=== PATIENT | male | born 1960 | race Caucasian/White ===

== ENCOUNTER 2019-04-11 19:37 | Emergency (ER) | payer MEDICARE ==
[~2019-04-11] VITALS: Ht 165.1 cm; Wt 77.0 kg
[2019-04-11] MEDS ORDERED: ipratropium/albuterol 3ml nebule NEB ONE (19:50)
[2019-04-11] MEDS ORDERED: methylPREDNISolone sod succ 125mg/2ml vial IV ONE (20:15)
[2019-04-11] MEDS ORDERED: albuterol 2.5 MG/3 ML nebule CONTNEB ONE (20:15)
[2019-04-11] MEDS ORDERED: normal saline 1000ml 1,000 ML IV ONE (20:20)
[2019-04-11] MEDS ORDERED: magnesium 2GM in 50ml NS 50 ML IV ONE (20:20)
--- NOTE | 2019-04-11 22:03 | NUR ---
Checked in on pt. Pt breathing is greatly improved-no further wheezing.
[2019-04-11] MEDS ORDERED: FLUT1BLS3 IH (22:10)
[2019-04-11] MEDS ORDERED: ALBU8.5H8 INH (22:10)
[2019-04-11] MEDS ORDERED: PRED10TA PO (22:10)
[2019-04-11 22:17] VITALS: BP 110/62
== END 2019-04-11 22:25 | disposition home or self-care (01) ==
LOC: ER 19:38
DX: J45.901 Unspecified asthma with (acute) exacerbation (principal); Z79.899 Other long term (current) drug therapy
CPT/HCPCS: 36415; 71046; 83880; 94640; 94644; 94760; 96365; 96375; 99285; J2930; J3475; J7030

== ENCOUNTER 2019-05-20 08:51 | Emergency (ER) | payer MEDICARE ==
[~2019-05-20] VITALS: Ht 165.1 cm; Wt 75.0 kg
[~2019-05-20 08:51] MED LIST: ALBU8.5H8 INH; FLUT1BLS3 IH; PRED10TA PO
[2019-05-20] MEDS ORDERED: TETanus/Pertussis (Acell)/Diphther VAC/PF (Tdap-Adult) 0.5ml syringe IM ONE (09:40)
[2019-05-20] MEDS ORDERED: LIDOcaine 1% w/epiNEPHrine 1:200,000 30ml vial IM ONE (09:40)
[2019-05-20] MEDS ORDERED: CEPH500C5 PO (11:04)
[2019-05-20] MEDS ORDERED: HYDR-4383 PO (11:05)
[2019-05-20 11:30] VITALS: BP 119/79
== END 2019-05-20 11:41 | disposition home or self-care (01) ==
LOC: ER 08:52
DX: S62.522B Displaced fracture of distal phalanx of left thumb, initial encounter for open fracture (principal); J45.909 Unspecified asthma, uncomplicated; Z79.2 Long term (current) use of antibiotics; Z79.899 Other long term (current) drug therapy; W26.8XXA Contact with other sharp object(s), not elsewhere classified, initial encounter; Y93.89 Activity, other specified; Y92.69 Other specified industrial and construction area as the place of occurrence of the external cause; Y99.8 Other external cause status
CPT/HCPCS: 12002; 29125; 73130; 90471; 99283

== ENCOUNTER 2019-06-03 06:29 | Emergency (ER) | payer MEDICARE ==
[~2019-06-03] VITALS: Ht 165.1 cm; Wt 75.0 kg
[~2019-06-03 06:29] MED LIST changes: +HYDR-4383 PO
[2019-06-03 06:33] VITALS: BP 115/62
== END 2019-06-03 07:00 | disposition home or self-care (01) ==
LOC: ER 06:30
DX: S61.012D Laceration without foreign body of left thumb without damage to nail, subsequent encounter (principal); J45.909 Unspecified asthma, uncomplicated; Z79.2 Long term (current) use of antibiotics; Z79.899 Other long term (current) drug therapy; X58.XXXD Exposure to other specified factors, subsequent encounter
CPT/HCPCS: 99281

== ENCOUNTER 2019-11-15 17:14 | Emergency (ER) | payer MEDICARE ==
[~2019-11-15] VITALS: Ht 165.1 cm; Wt 72.0 kg
[2019-11-15 18:05] LABS: BASOPHILS # (AUTO) 0.1 X10'3 (0-0.2); BASOPHILS % (AUTO) 0.9 % (0-1); EOSINOPHILS # (AUTO) 0.1 X10'3 (0-0.9); EOSINOPHILS % (AUTO) 1.1 % (0-6); HEMATOCRIT 46.8 % (42.0-52.0); HEMOGLOBIN 15.9 g/dl (14.0-17.9); LYMPHOCYTES # (AUTO) 1.6 X10'3 (1.1-4.8); LYMPHOCYTES % (AUTO) 28.2 % (21-51); MEAN CORPUSCULAR HEMOGLOBIN 31.7 PG (27.0-31.0); MEAN CORPUSCULAR HGB CONC 33.9 g/dL (33.0-36.5); MEAN CORPUSCULAR VOLUME 93.6 FL (78-98); MEAN PLATELET VOLUME 7.4 FL (7.4-10.4); MONOCYTES # (AUTO) 0.6 X10'3 (0-0.9); NEUTROPHILS # (AUTO) 3.4 X10'3 (1.8-7.7); NEUTROPHILS % (AUTO) 58.8 % (42-75); PLATELET COUNT 176 X10'3 (140-440); RED BLOOD COUNT 5.01 X10'6 (4.70-6.10); RED CELL DISTRIBUTION WIDTH 15.5 % (11.5-14.5); WHITE BLOOD COUNT 5.8 X10'3 (4.5-11.0)
[2019-11-15 18:29] LABS: ALANINE AMINOTRANSFERASE 31 U/L (12-78); ALBUMIN 3.6 G/DL (3.4-5.0); ALBUMIN/GLOBULIN RATIO 1.1 (1.1-1.5); ALKALINE PHOSPHATASE 63 IU/L (46-116); ANION GAP 6 (8-16); ASPARTATE AMINO TRANSFERASE 18 U/L (10-37); BILIRUBIN,TOTAL 0.4 MG/DL (0.1-1.0); BLOOD UREA NITROGEN 21 MG/DL (7-18); BUN/CREATININE RATIO 20.4 (5.4-32.0); CALCIUM 8.7 MG/DL (8.5-10.1); CHLORIDE 106 MMOL/L (99-107); CREATININE 1.03 MG/DL (0.60-1.10); GLUCOSE 119 MG/DL (70-104); POTASSIUM 4.4 MMOL/L (3.5-5.1); SODIUM 141 MMOL/L (135-145); TOTAL CARBON DIOXIDE 28.8 MMOL/L (24-32); TOTAL PROTEIN 6.9 G/DL (6.4-8.2); eGFR 74 ML/MIN
[2019-11-15] MEDS ORDERED: ipratropium/albuterol 3ml nebule NEB ONE (19:40)
[2019-11-15] MEDS ORDERED: methylPREDNISolone sod succ 125mg/2ml vial IV ONE (21:30)
[2019-11-15] MEDS: albuterol 2.5 MG/3 ML nebule CONTNEB PRN (21:51)
[2019-11-15] MEDS ORDERED: ALBU8.5H8 IH (22:04)
[2019-11-15] MEDS ORDERED: PRED5TAB PO (22:04)
[2019-11-15] MEDS ORDERED: FLUT1DIS4 INH (22:04)
[2019-11-15] MEDS ORDERED: normal saline 1000ml 1,000 ML IV ONE (22:40)
[2019-11-15] MEDS ORDERED: levoFLOXACIN-Levaquin 750MG/D5 150 ML IV ONE (22:40)
[2019-11-16] MEDS ORDERED: albuterol 2.5 MG/3 ML nebule CONTNEB PRN
[2019-11-16] MEDS: albuterol 2.5 MG/3 ML nebule CONTNEB PRN (00:07)
--- NOTE | 2019-11-16 00:07 | NUR ---
Respiratory therapy is in the room to start another continuous neb treatment.
[2019-11-16] MEDS ORDERED: dexamethasone 4mg tablet PO ONE (00:50)
[2019-11-16] MEDS ORDERED: albuterol 2.5 MG/3 ML nebule NEB ONE (00:50)
[2019-11-16] MEDS ORDERED: ALBU6.7H9 INH (00:51)
[2019-11-16] MEDS ORDERED: PRED20TA PO (00:51)
[2019-11-16 01:40] VITALS: BP 112/70
[2019-11-21] MEDS ORDERED: AZI25OT PO (11:20)
[2019-11-21] MEDS ORDERED: PRED10TA23 PO (11:20)
== END 2019-11-16 01:41 | disposition home or self-care (01) ==
LOC: ER 17:15
DX: J44.1 Chronic obstructive pulmonary disease with (acute) exacerbation (principal); F17.210 Nicotine dependence, cigarettes, uncomplicated; Z79.899 Other long term (current) drug therapy; Z79.52 Long term (current) use of systemic steroids
CPT/HCPCS: 36415; 71045; 80053; 83605; 84145; 84484; 85025; 87040; 87502; 87503; 93005; 94640; 94644; 94645; 96365; 96375; 99285; J1956; J2930; J7030; 94760

== ENCOUNTER 2019-11-18 17:10 | Emergency (ER) | payer MEDICARE ==
[~2019-11-18] VITALS: Ht 165.1 cm; Wt 78.8 kg
[~2019-11-18 17:10] MED LIST changes: +ALBU6.7H9 INH; +ALBU8.5H8 IH; -ALBU8.5H8 INH; -FLUT1BLS3 IH; +FLUT1DIS4 INH; -HYDR-4383 PO; -PRED10TA PO; +PRED20TA PO; +PRED5TAB PO
[2019-11-18 19:18] LABS: HEMATOCRIT 43.9 % (42.0-52.0); HEMOGLOBIN 15.1 g/dl (14.0-17.9); MEAN CORPUSCULAR HGB CONC 34.4 g/dL (33.0-36.5); MEAN PLATELET VOLUME 8.1 FL (7.4-10.4)
[2019-11-18 19:19] LABS: BASOPHILS % (AUTO) 0.3 % (0-1); EOSINOPHILS % (AUTO) 0.4 % (0-6); LYMPHOCYTES # (AUTO) 0.9 X10'3 (1.1-4.8); LYMPHOCYTES % (AUTO) 9.9 % (21-51); MEAN CORPUSCULAR VOLUME 93.2 FL (78-98); MONOCYTES # (AUTO) 0.6 X10'3 (0-0.9); MONOCYTES % (AUTO) 5.9 % (2-12); NEUTROPHILS # (AUTO) 7.8 X10'3 (1.8-7.7); NEUTROPHILS % (AUTO) 83.5 % (42-75); PLATELET COUNT 174 X10'3 (140-440); RED BLOOD COUNT 4.71 X10'6 (4.70-6.10); RED CELL DISTRIBUTION WIDTH 14.8 % (11.5-14.5); WHITE BLOOD COUNT 9.4 X10'3 (4.5-11.0)
[2019-11-18] MEDS ORDERED: methylPREDNISolone sod succ 125mg/2ml vial IV ONE (19:20)
[2019-11-18] MEDS ORDERED: ipratropium/albuterol 3ml nebule NEB ONE (19:20)
[2019-11-18 19:26] LABS: ALANINE AMINOTRANSFERASE 45 U/L (12-78); ALBUMIN 3.5 G/DL (3.4-5.0); ALBUMIN/GLOBULIN RATIO 1.1 (1.1-1.5); ALKALINE PHOSPHATASE 55 IU/L (46-116); ANION GAP 8 (8-16); ASPARTATE AMINO TRANSFERASE 20 U/L (10-37); BILIRUBIN,TOTAL 0.4 MG/DL (0.1-1.0); BLOOD UREA NITROGEN 27 MG/DL (7-18); BUN/CREATININE RATIO 28.4 (5.4-32.0); CALCIUM 8.9 MG/DL (8.5-10.1); CHLORIDE 107 MMOL/L (99-107); CREATININE 0.95 MG/DL (0.60-1.10); GLUCOSE 99 MG/DL (70-104); POTASSIUM 4.3 MMOL/L (3.5-5.1); SODIUM 142 MMOL/L (135-145); TOTAL CARBON DIOXIDE 27.3 MMOL/L (24-32); TOTAL PROTEIN 6.8 G/DL (6.4-8.2); eGFR 81 ML/MIN
[2019-11-18] MEDS ORDERED: PRED20TA PO (20:01)
[2019-11-18 20:40] VITALS: BP 114/62
[2019-11-21] MEDS ORDERED: AZI25OT PO (11:20)
[2019-11-21] MEDS ORDERED: PRED10TA23 PO (11:20)
== END 2019-11-18 20:42 | disposition home or self-care (01) ==
LOC: ER 17:11
DX: J45.909 Unspecified asthma, uncomplicated (principal); Z87.09 Personal history of other diseases of the respiratory system; Z79.899 Other long term (current) drug therapy
CPT/HCPCS: 36415; 71045; 80053; 83880; 84484; 85025; 93005; 94640; 96374; 99284; J2930; 94760

== ENCOUNTER 2020-02-11 10:31 | Emergency (ER) | payer MEDICARE ==
[~2020-02-11] VITALS: Ht 165.1 cm; Wt 76.8 kg
[~2020-02-11 10:31] MED LIST changes: -ALBU6.7H9 INH; +AZI25OT PO; -PRED20TA PO; -PRED5TAB PO
[2020-02-11 10:37] VITALS: BP 114/79
--- NOTE | 2020-02-11 11:03 | NUR ---
Breaking primary RN, pt just got his X ray, awaiting results
[2020-02-11] MEDS ORDERED: acetaminophen 325mg tablet PO ONE (11:10)
[2020-02-11] MEDS ORDERED: ketorolac trometh inj. 60 MG/2 ML VIAL IM ONE (11:10)
== END 2020-02-11 13:17 | disposition home or self-care (01) ==
LOC: ER 10:32
DX: S92.002A Unspecified fracture of left calcaneus, initial encounter for closed fracture (principal); J44.9 Chronic obstructive pulmonary disease, unspecified; Z60.2 Problems related to living alone; Z79.2 Long term (current) use of antibiotics; Z79.899 Other long term (current) drug therapy; W11.XXXA Fall on and from ladder, initial encounter; Y93.89 Activity, other specified; Y92.89 Other specified places as the place of occurrence of the external cause; Y99.8 Other external cause status
CPT/HCPCS: 29515; 73630; 73700; 96372; 99284; J1885

== ENCOUNTER 2022-10-05 14:17 | Inpatient (IN) | payer MEDICARE ==
[~2022-10-05] VITALS: Ht 165.1 cm; Wt 81.8 kg
[~2022-10-05 14:17] MED LIST changes: +ALBU8.5H17 IH; -ALBU8.5H8 IH
[2022-10-05] MEDS ORDERED: magnesium 2GM in 50ml NS 50 ML IV ONE (14:25)
[2022-10-05] MEDS ORDERED: ipratropium 0.5 MG/2.5ML nebule IH ONE (14:25)
[2022-10-05] MEDS ORDERED: albuterol 2.5 MG/3 ML nebule CONTNEB PRN (14:25)
[2022-10-05 14:39] LABS: BASOPHILS % (AUTO) 0.4 % (0-1); EOSINOPHILS % (AUTO) 0 % (0-6); HEMOGLOBIN 14.8 g/dl (14.0-17.9); LYMPHOCYTES # (AUTO) 0.4 X10'3 (1.1-4.8); LYMPHOCYTES % (AUTO) 4.6 % (21-51); MEAN CORPUSCULAR HEMOGLOBIN 31.2 PG (27.0-31.0); MEAN CORPUSCULAR HGB CONC 33.6 g/dL (33.0-36.5); MEAN CORPUSCULAR VOLUME 92.7 FL (78-98); MEAN PLATELET VOLUME 7.3 FL (7.4-10.4); MONOCYTES # (AUTO) 0.7 X10'3 (0-0.9); MONOCYTES % (AUTO) 8.1 % (2-12); NEUTROPHILS # (AUTO) 7.8 X10'3 (1.8-7.7); NEUTROPHILS % (AUTO) 86.9 % (42-75); PLATELET COUNT 188 X10'3 (140-440); RED BLOOD COUNT 4.75 X10'6 (4.70-6.10); RED CELL DISTRIBUTION WIDTH 14.7 % (11.5-14.5)
[2022-10-05 14:59] LABS: ALANINE AMINOTRANSFERASE 27 U/L (12-78); ALBUMIN 3.8 G/DL (3.4-5.0); ALBUMIN/GLOBULIN RATIO 1.1 (1.1-1.5); ALKALINE PHOSPHATASE 86 IU/L (46-116); ANION GAP 7 (8-16); ASPARTATE AMINO TRANSFERASE 21 U/L (10-37); BILIRUBIN,TOTAL 0.6 MG/DL (0.1-1.0); BLOOD UREA NITROGEN 16 MG/DL (7-18); BUN/CREATININE RATIO 14.7 (5.4-32.0); CALCIUM 9.7 MG/DL (8.5-10.1); CHLORIDE 103 MMOL/L (99-107); CREATININE 1.09 MG/DL (0.60-1.10); GLUCOSE 105 MG/DL (70-104); POTASSIUM 4.3 MMOL/L (3.5-5.1); SODIUM 137 MMOL/L (135-145); TOTAL CARBON DIOXIDE 26.9 MMOL/L (24-32); TOTAL PROTEIN 7.4 G/DL (6.4-8.2); eGFR 68 ML/MIN
[2022-10-05] MEDS ORDERED: methylPREDNISolone sod succ 125mg/2ml vial IV ONE (15:20)
[2022-10-05] MEDS ORDERED: magnesium hydroxide 30ml (MOM) UD suspension PO PRN (16:55)
[2022-10-05] MEDS ORDERED: ondansetron/PF 4mg/2ml inj IV PRN (16:55)
[2022-10-05] MEDS ORDERED: mag hydrox/Alum hydrox/simeth 30ml oral suspension PO PRN (16:55)
[2022-10-05] MEDS ORDERED: acetaminophen 325mg tablet PO PRN ×2 (16:55)
[2022-10-05] MEDS ORDERED: HYDROcodone/acetaminophen 10/325mg tab PO PRN (16:55)
[2022-10-05] MEDS ORDERED: HYDROcodone/acetaminophen 5mg/325mg tablet PO PRN (16:55)
[2022-10-05] MEDS ORDERED: morphine 2 MG/ML inj. syringe IV PRN ×2 (16:55)
[2022-10-05] MEDS ORDERED: PRE5T PO (16:58)
[2022-10-05] MEDS ORDERED: ALBU18HF2 PO (16:58)
[2022-10-05] MEDS ORDERED: FLUT1BLS4 PO (16:58)
[2022-10-05] MEDS ORDERED: ipratropium/albuterol 3ml nebule ONE (18:47)
[2022-10-05] MEDS: budesonide 0.5mg/2ml UD nebule IH SCH (18:48)
[2022-10-05] MEDS: methylPREDNISolone sod succ 125mg/2ml vial IV SCH (20:29)
[2022-10-05] MEDS: docusate sod 100mg capsule PO SCH (20:31)
[2022-10-05] MEDS ORDERED: ipratropium/albuterol 3ml nebule NEB SCH (21:00)
[2022-10-05] MEDS: ipratropium/albuterol 3ml nebule NEB SCH (22:09)
[2022-10-06] MEDS ORDERED: benzonatate 100mg capsule PO ONE
[2022-10-06] MEDS ORDERED: guaiFENesin/DM 10ml UD oral syrup PO ONE (02:00)
[2022-10-06] MEDS: ipratropium/albuterol 3ml nebule NEB SCH ×6 (02:08→23:04)
[2022-10-06] MEDS: methylPREDNISolone sod succ 125mg/2ml vial IV SCH ×4 (03:22→19:20)
--- NOTE | 2022-10-06 06:45 | NUR ---
ASSUMED CARE. PT HAS AUDIBLE WHEEZES, SITTING UPRIGHT, INCREASED WORK OF BREATHING. PT STATING "IM GETTING CLOSE TO MY NEXT BREATHING TX". PT REPORTS IMPROVEMENT AFTER BREATHING TXS. WILL CONTACT RT.
[2022-10-06] MEDS: budesonide 0.5mg/2ml UD nebule IH SCH ×2 (06:54→19:20)
--- NOTE | 2022-10-06 07:18 | NUR ---
PT WORK OF BREATHING HAS IMPROVED POST BREATHING TX. WILL REQUEST PRN BREATHING TX.
[2022-10-06 08:22] LABS: BASOPHILS % (AUTO) 0.3 % (0-1); EOSINOPHILS % (AUTO) 0 % (0-6); HEMOGLOBIN 14.7 g/dl (14.0-17.9); LYMPHOCYTES # (AUTO) 0.3 X10'3 (1.1-4.8); MEAN CORPUSCULAR HEMOGLOBIN 31.2 PG (27.0-31.0); MEAN CORPUSCULAR HGB CONC 33.5 g/dL (33.0-36.5); MEAN PLATELET VOLUME 7.3 FL (7.4-10.4); MONOCYTES # (AUTO) 0.2 X10'3 (0-0.9); MONOCYTES % (AUTO) 2.6 % (2-12); NEUTROPHILS # (AUTO) 7.5 X10'3 (1.8-7.7); NEUTROPHILS % (AUTO) 93.1 % (42-75); PLATELET COUNT 191 X10'3 (140-440); RED BLOOD COUNT 4.73 X10'6 (4.70-6.10); RED CELL DISTRIBUTION WIDTH 14.7 % (11.5-14.5); WHITE BLOOD COUNT 8.1 X10'3 (4.5-11.0)
[2022-10-06 08:41] LABS: ALBUMIN 3.7 G/DL (3.4-5.0); ANION GAP 9 (8-16); BLOOD UREA NITROGEN 32 MG/DL (7-18); BUN/CREATININE RATIO 25.2 (5.4-32.0); CALCIUM 9.7 MG/DL (8.5-10.1); CHLORIDE 103 MMOL/L (99-107); CREATININE 1.27 MG/DL (0.60-1.10); GLUCOSE 136 MG/DL (70-104); POTASSIUM 4.3 MMOL/L (3.5-5.1); SODIUM 139 MMOL/L (135-145); TOTAL CARBON DIOXIDE 26.6 MMOL/L (24-32); eGFR 57 ML/MIN
[2022-10-06] MEDS: docusate sod 100mg capsule PO SCH ×2 (09:29→19:20)
[2022-10-06] MEDS: enoxaparin 40mg/0.4ml syringe SUBCUT SCH (09:30)
[2022-10-06] MEDS: albuterol 2.5 MG/3 ML nebule NEB PRN ×3 (10:18→23:05)
[2022-10-06] MEDS ORDERED: ipratropium/albuterol 3ml nebule NEB SCH (11:00)
--- NOTE | 2022-10-06 11:04 | NUR ---
Received report from Priscilla in the ER. Patient will be coming up shortly.
[2022-10-06 12:00] VITALS: BP 97/71
[2022-10-06 15:00] VITALS: BP 103/64
[2022-10-06] MEDS ORDERED: azithromycin 250mg tablet PO ONE (15:30)
[2022-10-06 15:51] LABS: ABG BASE EXCESS -1.1 mmol/L (-2.0-2.0); ABG HCO3 23.4 mmol/L (22.0-26.0); ABG PCO2 (T) 38.4 mmHg (35.0-48.0); ALLEN'S TEST POSITIVE; FCOHb 0.1 % (0.0-3.9); FLOW 3 L/min; FMetHb 0.3 % (0.0-1.5); FO2Hb 96.6 % (94-97); TOTAL HEMOGLOBIN 15.9 G/dl (14.0-17.9)
[2022-10-06 18:00] VITALS: BP 140/59
--- NOTE | 2022-10-06 18:00 | NUR ---
Patient in room PCU 3023. I have received report from GERALD PATEL and had the opportunity to ask questions and assume patient care.
--- NOTE | 2022-10-06 18:52 | NUR ---
Problems reprioritized. Patient report given, questions answered & plan of care reviewed with JORGE Bautista.
[2022-10-06 22:00] VITALS: BP 101/64
[2022-10-07] MEDS: methylPREDNISolone sod succ 125mg/2ml vial IV SCH ×4 (01:39→23:47)
[2022-10-07 02:00] VITALS: BP 159/54
[2022-10-07] MEDS ORDERED: guaiFENesin/DM 10ml UD oral syrup PO PRN (02:05)
[2022-10-07] MEDS ORDERED: benzonatate 100mg capsule PO PRN (02:05)
[2022-10-07] MEDS: ipratropium/albuterol 3ml nebule NEB SCH ×6 (03:05→23:44)
[2022-10-07 06:00] VITALS: BP 124/83
--- NOTE | 2022-10-07 06:36 | NUR ---
Patient in room PCU 3023. I have received report from JORGE Bautista and had the opportunity to ask questions and assume patient care.
[2022-10-07 07:29] LABS: BASOPHILS % (AUTO) 0.1 % (0-1); EOSINOPHILS % (AUTO) 0 % (0-6); HEMATOCRIT 42.5 % (42.0-52.0); HEMOGLOBIN 14.3 g/dl (14.0-17.9); LYMPHOCYTES # (AUTO) 0.3 X10'3 (1.1-4.8); LYMPHOCYTES % (AUTO) 2.7 % (21-51); MEAN CORPUSCULAR HEMOGLOBIN 31.3 PG (27.0-31.0); MEAN CORPUSCULAR HGB CONC 33.6 g/dL (33.0-36.5); MEAN PLATELET VOLUME 7.9 FL (7.4-10.4); MONOCYTES # (AUTO) 0.5 X10'3 (0-0.9); MONOCYTES % (AUTO) 4.6 % (2-12); NEUTROPHILS # (AUTO) 10.5 X10'3 (1.8-7.7); NEUTROPHILS % (AUTO) 92.6 % (42-75); PLATELET COUNT 193 X10'3 (140-440); RED BLOOD COUNT 4.56 X10'6 (4.70-6.10); RED CELL DISTRIBUTION WIDTH 14.9 % (11.5-14.5); WHITE BLOOD COUNT 11.3 X10'3 (4.5-11.0)
[2022-10-07] MEDS: budesonide 0.5mg/2ml UD nebule IH SCH ×2 (07:33→19:34)
[2022-10-07] MEDS: docusate sod 100mg capsule PO SCH ×2 (08:00→23:47)
[2022-10-07 08:19] LABS: ALBUMIN 3.2 G/DL (3.4-5.0); ANION GAP 10 (8-16); BLOOD UREA NITROGEN 44 MG/DL (7-18); BUN/CREATININE RATIO 35.5 (5.4-32.0); CALCIUM 9.2 MG/DL (8.5-10.1); CHLORIDE 103 MMOL/L (99-107); CREATININE 1.24 MG/DL (0.60-1.10); GLUCOSE 130 MG/DL (70-104); POTASSIUM 4.5 MMOL/L (3.5-5.1); SODIUM 139 MMOL/L (135-145); TOTAL CARBON DIOXIDE 25.9 MMOL/L (24-32); eGFR 59 ML/MIN
[2022-10-07] MEDS: enoxaparin 40mg/0.4ml syringe SUBCUT SCH (09:24)
[2022-10-07] MEDS: montelukast 10mg tablet PO SCH (09:34)
[2022-10-07] MEDS: albuterol 2.5 MG/3 ML nebule NEB PRN (10:21)
[2022-10-07 11:00] VITALS: BP 105/74
[2022-10-07 15:00] VITALS: BP 106/59
[2022-10-07] MEDS ORDERED: azithromycin 250mg tablet PO SCH (16:00)
[2022-10-07 18:00] VITALS: BP 149/59
--- NOTE | 2022-10-07 18:33 | NUR ---
Problems reprioritized. Patient report given, questions answered & plan of care reviewed with JORGE Arias.
[2022-10-07 22:00] VITALS: BP 110/59
[2022-10-08 02:00] VITALS: BP 101/65
[2022-10-08] MEDS: ipratropium/albuterol 3ml nebule NEB SCH ×3 (02:21→11:20)
[2022-10-08] MEDS: methylPREDNISolone sod succ 125mg/2ml vial IV SCH ×2 (02:28→09:08)
--- NOTE | 2022-10-08 06:48 | NUR ---
Patient in room U 3023. I have received report from HOLDEN PATEL and had the opportunity to ask questions and assume patient care. Addendum: 10/08/22 at 0730 by Angie Mack RN DR. SAUL IN TO SEE PATIENT ON ROUNDING.
[2022-10-08 07:00] VITALS: BP 108/64
[2022-10-08] MEDS: budesonide 0.5mg/2ml UD nebule IH SCH (07:09)
[2022-10-08 07:26] LABS: BASOPHILS % (AUTO) 0.1 % (0-1); EOSINOPHILS % (AUTO) 0 % (0-6); HEMATOCRIT 43.2 % (42.0-52.0); HEMOGLOBIN 14.4 g/dl (14.0-17.9); LYMPHOCYTES # (AUTO) 0.4 X10'3 (1.1-4.8); LYMPHOCYTES % (AUTO) 3.8 % (21-51); MEAN CORPUSCULAR HGB CONC 33.3 g/dL (33.0-36.5); MEAN PLATELET VOLUME 7.6 FL (7.4-10.4); MONOCYTES # (AUTO) 0.4 X10'3 (0-0.9); MONOCYTES % (AUTO) 3.9 % (2-12); NEUTROPHILS # (AUTO) 8.5 X10'3 (1.8-7.7); NEUTROPHILS % (AUTO) 92.2 % (42-75); PLATELET COUNT 206 X10'3 (140-440); RED BLOOD COUNT 4.65 X10'6 (4.70-6.10); RED CELL DISTRIBUTION WIDTH 14.8 % (11.5-14.5); WHITE BLOOD COUNT 9.2 X10'3 (4.5-11.0)
[2022-10-08 07:28] LABS: ALBUMIN 3.3 G/DL (3.4-5.0); ANION GAP 11 (8-16); BLOOD UREA NITROGEN 38 MG/DL (7-18); BUN/CREATININE RATIO 33.6 (5.4-32.0); CALCIUM 9.3 MG/DL (8.5-10.1); CHLORIDE 104 MMOL/L (99-107); CREATININE 1.13 MG/DL (0.60-1.10); GLUCOSE 118 MG/DL (70-104); POTASSIUM 4.5 MMOL/L (3.5-5.1); SODIUM 140 MMOL/L (135-145); eGFR 66 ML/MIN
[2022-10-08] MEDS: enoxaparin 40mg/0.4ml syringe SUBCUT SCH (09:08)
[2022-10-08] MEDS: montelukast 10mg tablet PO SCH (09:08)
[2022-10-08] MEDS: docusate sod 100mg capsule PO SCH (09:08)
[2022-10-08] MEDS ORDERED: MONT-40 PO (10:11)
[2022-10-08] MEDS ORDERED: PRED20TA PO (10:11)
== END 2022-10-08 11:50 | disposition home or self-care (01) | DRG 189 ==
LOC: ER 14:18 → ED HOLD 16:59 → PCU 3S 10-06 11:24
PROVIDERS: ADMIT Internal Medicine; ATTEND Internal Medicine
DX: J96.01 Acute respiratory failure with hypoxia (principal); N17.0 Acute kidney failure with tubular necrosis; J45.901 Unspecified asthma with (acute) exacerbation; J44.1 Chronic obstructive pulmonary disease with (acute) exacerbation; E86.0 Dehydration; Z20.822 Contact with and (suspected) exposure to COVID-19; G89.29 Other chronic pain; M54.9 Dorsalgia, unspecified; Z87.891 Personal history of nicotine dependence; Z79.899 Other long term (current) drug therapy
CPT/HCPCS: 36415; 36600; 71045; 80048; 80053; 82803; 83880; 84145; 84484; 85018; 85025; 87081; 87635; 93005; 94640; 94664; 94668; 94760; 96365; 96375; 99291; A4615; A6258; A7015; C9803; G0378; J1650; J2930; J3475

== ENCOUNTER 2022-12-28 17:43 | Emergency (ER) | payer MEDICARE ==
[~2022-12-28 17:43] MED LIST changes: +ALBU18HF2 PO; -ALBU8.5H17 IH; -AZI25OT PO; +FLUT1BLS4 PO; -FLUT1DIS4 INH; +MONT-40 PO; +PRED20TA PO
[2022-12-28] MEDS ORDERED: albuterol 2.5 MG/3 ML nebule CONTNEB PRN (17:50)
[2022-12-28] MEDS ORDERED: magnesium 2GM in 50ml NS 50 ML IV ONE (17:50)
[2022-12-28] MEDS ORDERED: methylPREDNISolone sod succ 125mg/2ml vial IV ONE (17:50)
[2022-12-28 18:06] LABS: BASOPHILS % (AUTO) 0.6 % (0-1); EOSINOPHILS % (AUTO) 0 % (0-6); HEMOGLOBIN 15.5 g/dl (14.0-17.9); LYMPHOCYTES # (AUTO) 0.9 X10'3 (1.1-4.8); LYMPHOCYTES % (AUTO) 15.3 % (21-51); MEAN CORPUSCULAR HEMOGLOBIN 31.3 PG (27.0-31.0); MEAN CORPUSCULAR HGB CONC 33.7 g/dL (33.0-36.5); MEAN CORPUSCULAR VOLUME 92.8 FL (78-98); MEAN PLATELET VOLUME 7.1 FL (7.4-10.4); MONOCYTES # (AUTO) 0.5 X10'3 (0-0.9); NEUTROPHILS # (AUTO) 4.7 X10'3 (1.8-7.7); NEUTROPHILS % (AUTO) 76.1 % (42-75); PLATELET COUNT 142 X10'3 (140-440); RED BLOOD COUNT 4.95 X10'6 (4.70-6.10); RED CELL DISTRIBUTION WIDTH 15.2 % (11.5-14.5); WHITE BLOOD COUNT 6.2 X10'3 (4.5-11.0)
[2022-12-28 18:17] LABS: ABG HCO3 20.1 mmol/L (22.0-26.0); ABG OXYGEN SATURATION 97.2 % (94-97); ABG PCO2 (T) 30.7 mmHg (35.0-48.0); ABG PO2 (T) 91.5 mmHg (75.0-100.0); ALLEN'S TEST POSITIVE; FCOHb 0.7 % (0.0-3.9); FLOW 2 L/min; FMetHb 0.2 % (0.0-1.5); FO2Hb 96.3 % (94-97); TOTAL HEMOGLOBIN 15.2 G/dl (14.0-17.9)
[2022-12-28 18:17] LABS: ALANINE AMINOTRANSFERASE 27 U/L (12-78); ALBUMIN 3.9 G/DL (3.4-5.0); ALKALINE PHOSPHATASE 87 IU/L (46-116); ANION GAP 10 (8-16); ASPARTATE AMINO TRANSFERASE 29 U/L (10-37); BILIRUBIN,TOTAL 0.6 MG/DL (0.1-1.0); BLOOD UREA NITROGEN 18 MG/DL (7-18); BUN/CREATININE RATIO 16.8 (5.4-32.0); CALCIUM 9.1 MG/DL (8.5-10.1); CHLORIDE 103 MMOL/L (99-107); CREATININE 1.07 MG/DL (0.60-1.10); GLUCOSE 107 MG/DL (70-104); POTASSIUM 4.1 MMOL/L (3.5-5.1); SODIUM 139 MMOL/L (135-145); TOTAL CARBON DIOXIDE 26.2 MMOL/L (24-32); TOTAL PROTEIN 7.7 G/DL (6.4-8.2); eGFR 70 ML/MIN
[2022-12-28] MEDS ORDERED: ipratropium/albuterol 3ml nebule NEB ONE (19:00)
--- NOTE | 2022-12-28 19:50 | NUR ---
Pt reports resp effort improved after neb tx. BS CTA bilat, diminished in bilat LL. Pt admits to smoking daily. SpO2 93-94% on RA
[2022-12-28 21:52] VITALS: BP 107/64
== END 2022-12-28 21:55 | disposition home or self-care (01) ==
LOC: ER 17:43
DX: J44.1 Chronic obstructive pulmonary disease with (acute) exacerbation (principal); J96.20 Acute and chronic respiratory failure, unspecified whether with hypoxia or hypercapnia; J44.9 Chronic obstructive pulmonary disease, unspecified; G89.29 Other chronic pain; M54.50 Low back pain, unspecified
CPT/HCPCS: 36415; 36600; 71045; 80053; 82803; 85018; 85025; 93005; 94640; 94644; 96365; 96366; 96375; 99291; J2930; J3475; 94760; A7015